=== PATIENT | female | born 1970 | race African-American/Black ===

== ENCOUNTER 2016-06-23 01:25 | Inpatient (IN) | payer OTHER ==
[2016-06-23] MEDS ORDERED: PHENERGAN IV ONE (02:54)
[2016-06-23] MEDS ORDERED: MORPHINE IV ONE (02:54)
[2016-06-23] MEDS ORDERED: SODIUM CHLORIDE 0.9% INJ ONE (02:54)
--- NOTE | 2016-06-23 03:09 | PROVIDER DOCUMENTATION ---
HPI-Abdominal Pain/GI Problem - General Source: patient - History of Present Illness-ABD Nature of Presenting Problems: Pt is a 45 y/o AA female who returns to the ER this evening for evaluation of continued nausea and vomiting. Pt was seen in the ER this morning for the same symtoms. She states she is unsure how long symptoms have been present but now had some dysuria. Pt had relatively normal labs and no acute findings on CT scan (Renal Stone Search) this morning. On arrival, pt is in minimal distress. <Wali Shaikh - Last Filed: 06/23/16 03:48> <Laura Calix - Last Filed: 06/23/16 06:25> - General Chief Complaint: Return/Recheck Stated Complaint: RECHECK Time Seen by Provider: 06/23/16 02:23 Allergies/Adverse Reactions: Patient Allergies Allergy/AdvReac Type Severity Reaction Status Date / Time fluoxetine HCl * AdvReac Unknown Verified 06/22/16 08:47 [From [email or web address]] Home Medications: Home Medication List Medication Instructions Recorded Confirmed Last Taken Type Propranolol HCl [Propranolol HCl 80 mg PO DAILY 01/19/16 06/23/16 06/22/16 History ER] Quetiapine [Seroquel] 50 mg PO DIRECTED 01/19/16 06/23/16 06/22/16 History Ondansetron Odt [Zofran 4 mg Odt] 4 mg PO Q8H PRN PRN #10 tablet 06/22/1606/23/16 00:00 Rx Tramadol [Ultram] 50 mg PO Q8HR PRN #10 tablet 06/22/16 06/23/16 06/23/16 00:00 Rx Review of Systems - Adult - REVIEW OF SYSTEMS - ADULT Constitutional: reports: no symptoms reported. denies: chills, fatique Eyes: reports: no symptoms reported. denies: blurred vision, double vision Ears, Nose, Mouth & Throat: reports: no symptoms reported. denies: ear pain, nose pain Cardiovascular: reports: no symptoms reported. denies: chest pain, irregular heart rate Respiratory: reports: no symptoms reported. denies: cough, shortness of breath Gastrointestinal: reports: abdominal pain, nausea, vomiting Genitourinary: reports: no symptoms reported. denies: dysuria, hematuria Musculoskeletal: reports: no symptoms reported. denies: bone pain, joint pain, joint swelling Integumentary: reports: no symptoms reported. denies: itching, rash Neurological: reports: no symptoms reported. denies: numbness, paresthesia Psychiatric: reports: no symptoms reported. denies: anxiety, emotional problems Endocrine: reports: no symptoms reported. denies: cold intolerance, heat intolerance Hematologic/Lymphatic: reports: no symptoms reported. denies: blood clots, low blood count Allergic/Immunologic: reports: no symptoms reported. denies: allergic reactions , food allergy All Other Systems: Reviewed and Negative <Wali Shaikh - Last Filed: 06/23/16 03:48> Past History - Adult - PAST MEDICAL HISTORY-ADULT Review of Records: reports: Old Records Reviewed, Nursing Assessment Review, Medications Reviewed, Social history reviewed & non-contributory. Major Childhood Illnesses: reports: denies history Cardiovascular: reports: HTN Respiratory: reports: denies history Gastrointestinal: reports: GERD Obstetrical/Gynecological: reports: denies history Genitourinary: reports: denies history Musculoskeletal: reports: denies history Neurological: reports: headaches/migraines Psychiatric: reports: depression, schizophrenia Endocrine/Immune: reports: Diabetes Other Conditions: reports: denies history - PRIOR SURGERIES/PROCEDURES Surgical/Procedure History: reports: cholecystectomy, hysterectomy, - IMMUNIZATION STATUS Childhood Immunizations: See Nurse Assessment Flu Vaccine: See Nurse Assessment - FAMILY HISTORY Family History: reviewed, not pertinent - SOCIAL HISTORY Smoking: denies Substance Use: none/never Alcohol Use Frequency: never Living Situation: family <Wali Shaikh - Last Filed: 06/23/16 03:48> Physical Exam-General - PHYSICAL EXAM-ADULT Initial Vital Signs Reviewed: Yes - CONSTITUTIONAL General Appearance: appears well, alert, no apparent distress - EYES Eyes: PERRL/EOMI, pink conjunctivae, fundi clear, no AV nicking - HEAD, EARS, NOSE, MOUTH & THROAT HENMT: normocephalic/atraumatic, moist mucous membranes, normal ENT inspection - NECK Neck: non-tender - RESPIRATORY Respiratory: chest non-tender, lungs clear, normal breath sounds - CARDIOVASCULAR Cardiovascular: normal peripheral pulses, regular rate, rhythm, no edema - GASTROINTESTINAL (ABDOMEN) Abdominal Exam: normal bowel sounds, soft, tenderness (generalized) - LYMPHATIC Lymphatic: no adenopathy - MUSCULOSKELETAL Back Exam: normal inspection, no CVA tenderness, no vertebral tenderness Extremity: normal range of motion, non-tender, normal gait - SKIN Integumentary: normal color, normal turgor, warm/dry - NEUROLOGIC Neurologic: grossly normal, no motor/sensory deficits - PSYCHIATRIC Psych/Mental Status: normal mood/affect, normal thought content, normal thought process, oriented x 3 <Wali Shaikh - Last Filed: 06/23/16 03:48> Progress - CHANGE OF SHIFT REPORT (ED Provider) Report Given and Care Transferred to:: Dr. Salguero (ER MD) Time of Transfer: 03:49 Items Pending: Labs <Wali Shaikh - Last Filed: 06/23/16 03:48> - PLAN OF CARE/RESULTS Progress/Plan/Lab Results: Laboratory Results - last 24 hr 06/23/16 06/23/16 06/23/16 04:00 04:00 04:30 WBC 17.98 H RBC 5.14 Hgb 13.6 Hct 41.5 MCV 80.7 L MCH 26.5 L MCHC 32.8 L RDW Std Deviation 14.9 H Plt Count 327 D MPV 12.6 H Immature Gran % (Auto) 0.3 Neut % (Auto) 81.6 H Lymph % (Auto) 12.3 L [place] % (Auto) 5.6 Eos % (Auto) 0.1 Baso % (Auto) 0.1 Immature Gran # (Auto) 0.05 H Neut # (Auto) 14.68 H Lymph # (Auto) 2.22 [place] # (Auto) 1.00 H Eos # (Auto) 0.01 Baso # (Auto) 0.02 Sodium 140 Potassium 3.3 L Chloride 96 L Carbon Dioxide 26 Anion Gap 18 BUN 16 Creatinine 0.9 Estimated GFR/1.73 m2 > 60 BUN/Creatinine Ratio 18 Glucose 115 H Calculated Osmolality 282 Calcium 10.5 H Total Bilirubin 0.45 AST 34 H ALT 30 Alkaline Phosphatase 133 H Total Protein 8.9 H Albumin 4.7 Globulin 4.2 Albumin/Globulin Ratio 1.1 Urine Source CLEAN CATCH Urine Color YELLOW Urine Turbidity CLEAR Urine pH 6.0 Ur Specific [place] 1.027 Urine Protein 300 A Ur Glucose (Stick) NEGATIVE Ur Ketones (Stick) 80 A Urine Blood SMALL A Urine Nitrite NEGATIVE Urine Bilirubin NEGATIVE Urobilinogen Dipstick 2 A Urine Leukocytes NEGATIVE Urine WBC (Auto) 10-20 A Urine RBC (Auto) 10-20 A U Epithel Cells (Auto) <10 Urine Bacteria (Auto) NEGATIVE Urine Crystals NONE SEEN Small Round Cells NONE SEEN Urine Casts NONE SEEN Urine Yeast-like Cells NONE SEEN Orders Category Date Time Status CBC WITH ELECTRONIC DIFF [HEME] Stat Lab 06/23/16 04:00 Completed CMP [COMPREHENSIVE METABOLIC PANEL] [CHEM] Stat Lab 06/23/16 04:00 Completed UA Reflex [URINALYSIS W/POSS RFLX CULT] [URINALYSIS] Lab 06/23/16 04:30 Completed Stat URINE CULTURE [RM] Routine Lab 06/23/16 04:49 Received URINE MANUAL MICROSCOPIC [URINALYSIS] Stat Lab 06/23/16 04:30 Completed Acetaminophen [Tylenol] Med 06/23/16 04:12 Discontinued 650 mg PO NOW ONE Morphine Med 06/23/16 02:54 Discontinued 4 mg IV NOW ONE Ondansetron [Zofran] Med 06/23/16 04:12 Discontinued 4 mg IV NOW ONE Promethazine [Phenergan] Med 06/23/16 02:54 Discontinued 12.5 mg IV NOW ONE Sodium Chloride 0.9% Med 06/23/16 02:54 Discontinued 10 ml INJ NOW ONE Vital Signs Temp Pulse Resp BP Pulse Ox 06/23/16 01:38 98.4 F 94 H 18 142/118 98 fluoxetine HCl * [From [facility] [employer]] Adverse Reaction (Verified 06/22/16 08:47) Unknown Propranolol HCl [Propranolol HCl ER] 80 mg PO DAILY 01/19/16 Quetiapine [Seroquel] 50 mg PO DIRECTED 01/19/16 Ondansetron Odt [Zofran 4 mg Odt] 4 mg PO Q8H PRN PRN #10 tablet 06/22/16 Tramadol [Ultram] 50 mg PO Q8HR PRN #10 tablet 06/22/16 Laboratory 06/23/16 06/23/16 06/23/16 04:30 04:00 04:00 WBC 17.98 H RBC 5.14 Hgb 13.6 Hct 41.5 MCV 80.7 L MCH 26.5 L MCHC 32.8 L RDW Std Deviation 14.9 H Plt Count 327 D MPV 12.6 H Immature Gran % (Auto) 0.3 Neut % (Auto) 81.6 H Lymph % (Auto) 12.3 L [place] % (Auto) 5.6 Eos % (Auto) 0.1 Baso % (Auto) 0.1 Immature Gran # (Auto) 0.05 H Neut # (Auto) 14.68 H Lymph # (Auto) 2.22 [place] # (Auto) 1.00 H Eos # (Auto) 0.01 Baso # (Auto) 0.02 Sodium 140 Potassium 3.3 L Chloride 96 L Carbon Dioxide 26 Anion Gap 18 BUN 16 Creatinine 0.9 Estimated GFR/1.73 m2 > 60 BUN/Creatinine Ratio 18 Glucose 115 H Calculated Osmolality 282 Calcium 10.5 H Total Bilirubin 0.45 AST 34 H ALT 30 Alkaline Phosphatase 133 H Total Protein 8.9 H Albumin 4.7 Globulin 4.2 Albumin/Globulin Ratio 1.1 Urine Source CLEAN CATCH Urine Color YELLOW Urine Turbidity CLEAR Urine pH 6.0 Ur Specific [place] 1.027 Urine Protein 300 A Ur Glucose (Stick) NEGATIVE Ur Ketones (Stick) 80 A Urine Blood SMALL A Urine Nitrite NEGATIVE Urine Bilirubin NEGATIVE Urobilinogen Dipstick 2 A Urine Leukocytes NEGATIVE Urine WBC (Auto) 10-20 A Urine RBC (Auto) 10-20 A U Epithel Cells (Auto) <10 Urine Bacteria (Auto) NEGATIVE Urine Crystals NONE SEEN Small Round Cells NONE SEEN Urine Casts NONE SEEN Urine Yeast-like Cells NONE SEEN - CONSULTS/PCP/HOSPITALIST Notification Time Discussed: 06:25 Reason/Comments: Admit to Dr. Nova Consult Disposition: Admit <Laura Calix - Last Filed: 06/23/16 06:25> Departure - Departure Certified Medical Emergency: Emergent <Wali Shaikh - Last Filed: 06/23/16 03:48> - Departure Time of Disposition Order: 06:24 Certified Medical Emergency: Emergent <Laura Calix - Last Filed: 06/23/16 06:25> - Departure DIAGNOSIS: Abdominal pain Qualifiers: Abdominal location: epigastric Qualified Code(s): R10.13 - Epigastric pain Leukocytosis Qualifiers: Leukocytosis type: unspecified Qualified Code(s): D72.829 - Elevated white blood cell count, unspecified Disposition: ADMITTED INPATIENT 09 Condition: Stable Attestation - Physician/ KELBY Attestation Patient care was provided by Advanced Practice Provider:: Yes Advanced Practice Provider:: Wali Shaikh Advanced Practice Provider documentation review:: The Mid-level provider documentation, treatment plan and medical decision making was reviewed by the physician who agrees with all treatment and medical decision making by the MLP. The physician spent face to face time with patient:: Yes <Wali Shaikh - Last Filed: 06/23/16 03:48> Physician Attestation
[2016-06-23] MEDS ORDERED: ZOFRAN IV ONE (04:12)
[2016-06-23] MEDS ORDERED: TYLENOL PO ONE (04:12)
[2016-06-23 04:15] LABS: MANUAL DIFF NEEDED? NO
[2016-06-23 04:18] LABS: BASO% 0.1 % (0.0-0.8); EOS# 0.01 X1000 (0.0-0.7); EOS% 0.1 % (0.0-10.0); HEMATOCRIT 41.5 % (37.0-47.0); HEMOGLOBIN 13.6 g/dL (12.0-16.0); IMM GRAN# 0.05 X1000 (0.0-0.04); IMM GRAN% 0.3 % (0.0-0.5); LYMPH# 2.22 X1000 (1.2-3.4); LYMPH% 12.3 % (20.5-51.1); MCH 26.5 PG (27-31); MCHC 32.8 g/dL (33-37); MCV 80.7 FL (81-99); MONO% 5.6 % (1.7-9.3); MPV 12.6 FL (7.4-10.4); NEUT% 81.6 % (42.2-75.2); PLT 327 X1000 (130-400); RBC 5.14 XMIL (4.2-5.4)
[2016-06-23 04:35] LABS: URINE SOURCE CLEAN CATCH
[2016-06-23 04:38] LABS: AGAP 18; ALBUMIN 4.7 g/dL (3.5-5.0); ALKALINE PHOSPHATASE 133 U/L (32-104); BUN 16 mg/dL (8-22); CALCIUM 10.5 mg/dL (8.8-10.2); CHLORIDE 96 mmol/L (98-107); COSMO 282; GOT 34 U/L (10-30); GPT 30 U/L (10-36); POTASSIUM 3.3 mmol/L (3.5-5.1); SODIUM 140 mmol/L (136-145); TCO2 26 mmol/L (25-35); TOTAL BILIRUBIN 0.45 mg/dL (0.20-1.00); TOTAL PROTEIN 8.9 g/dL (6.3-8.3)
[2016-06-23 04:38] LABS: BILIRUBIN URINE NEGATIVE (NEGATIVE); BLOOD URINE SMALL (NEGATIVE); COLOR YELLOW; GLUCOSE URINE NEGATIVE (NEGATIVE); LEUKOCYTES URINE NEGATIVE (NEGATIVE); NITRITE URINE NEGATIVE (NEGATIVE); PROTEIN URINE 300 mg/dL (NEGATIVE); SP GRAVITY URINE 1.027; TURBIDITY URINE CLEAR (CLEAR); URINE MICRO REVIEW NEEDED? YES; UROBILINOGEN URINE 2 mg/dL (NORMAL)
[2016-06-23 04:47] LABS: UR EPITHELIAL CELLS <10 /HPF (<10); URINE BACTERIA NEGATIVE /HPF; URINE CULTURE NEEDED? YES
[2016-06-23 05:06] LABS: URINE CASTS NONE SEEN; URINE CRYSTALS NONE SEEN; URINE SMALL ROUND CELLS NONE SEEN
[2016-06-23] MEDS ORDERED: NICODERM PATCH TD PRN (08:36)
[2016-06-23] MEDS ORDERED: APRESOLINE IV PRN (08:42)
[2016-06-23] MEDS ORDERED: PROTONIX IV SCH (09:00)
[2016-06-23 09:04] LABS: INR 1.01; PROTIME 10.7 Seconds (9.2-11.7)
[2016-06-23 09:08] LABS: AMYLASE 106 U/L (20-200); LIPASE 29 U/L (13-60)
[2016-06-23 09:11] LABS: HEMOGLOBIN A1C 5.5 % (4.8-6.0)
[2016-06-23] MEDS: NS 1,000 ML IV SCH ×3 (09:12→20:31)
[2016-06-23] MEDS: POTASSIUM CHLORIDE 20 MEQ/SWI 100 ML IV SCH ×2 (09:12→11:42)
[2016-06-23] MEDS: ZOFRAN IV PRN ×3 (09:25→20:30)
[2016-06-23] MEDS: SODIUM CHLORIDE 0.9% INJ SCH ×2 (09:25→20:30)
[2016-06-23 09:53] LABS: UR AMPHETAMINES QUAL NONE DETECTED (NONE DETECT); UR BARBITUATES QUAL NONE DETECTED (NONE DETECT); UR BENZODIAZEPIN QUAL NONE DETECTED (NONE DETECT); UR CANNABINOIDS QUAL NONE DETECTED (NONE DETECT); UR COCAINE QUAL PRESUMPTIVE POSITIVE (NONE DETECT); UR METHADONE QUAL NONE DETECTED (NONE DETECT); UR OPIATES QUAL NONE DETECTED (NONE DETECT); UR OXYCODONE QUAL NONE DETECTED (NONE DETECT); UR PCP QUAL NONE DETECTED (NONE DETECT)
--- NOTE | 2016-06-23 10:13 | HISTORY AND PHYSICAL ---
PRIMARY CARE PHYSICIAN: None. CHIEF COMPLAINT: Abdominal pain. HISTORY OF PRESENT ILLNESS: Mrs. Mcclure is a 45-year-old female with a history of rheumatoid arthritis, schizoaffective disorder, hypertension, GERD and others who presents with fairly acute onset of abdominal pain, nausea and vomiting. Symptoms began around 3 days ago. She states she was having generalized abdominal pain with no apparent inciting factors, and this was not associated with eating. She describes the pain as generalized, constant and sharp. She has been having some dysuria, as well. She reports subjective fever and chills as well as diaphoresis. She denies any diarrhea and she has had no hematemesis. She actually came to the ER yesterday morning and was discharged with a diagnosis of generalized abdominal pain. At that time, she had a CT renal stone search which did not show anything acute. She was given Zofran and discharged home. However, her abdominal pain continued, and she came back to the ER yesterday evening. Laboratory data was significant for a leukocytosis, mildly elevated LFTs, and hypokalemia. She states that she recently moved from [place] around 6 months ago and has had a reconstructive surgeon there, and has had upper endoscopies before but is unable to give an exact diagnosis with the exception of GERD. Her vital signs are stable. We are now going to admit her for further treatment and evaluation. PAST MEDICAL HISTORY: 1. Rheumatoid arthritis. 2. Schizoaffective disorder. 3. Hypertension. 4. Type 2 diabetes. 5. GERD. 6. Hyperlipidemia. 7. History of DVTs in the past. 8. Migraines. 9. Cocaine dependence. 10.Nicotine dependence. SURGICAL HISTORY: Hysterectomy, , cholecystectomy, kidney stone removal. SOCIAL HISTORY: The patient states she smokes a pack a day. She drinks occasional beer. She says that she smokes cocaine/crack 4 times a month. Last use was last Sunday. She is single. She has 2 children, is on disability for her mental health disorder. FAMILY HISTORY: Mother is alive with no medical problems. Father is alive with a history of cirrhosis of the liver secondary to alcoholism. He is a recovering alcoholic. REVIEW OF SYSTEMS: A 14-point review of systems was obtained and found to be negative with the exception of the HPI. HOME MEDICATIONS: 1. Propranolol 80 mg daily. 2. Seroquel 50 mg as directed. 3. Zofran 4 mg as needed. 4. Tramadol 50 mg q.8 h. as needed for pain. ALLERGIES: Fluoxetine. PHYSICAL EXAMINATION: VITAL SIGNS: Blood pressure is 160/99, heart rate 74, respiratory rate is 20, O2 saturation is 100% on room air, temperature is 97.9. GENERAL: This is a morbidly obese female lying in hospital bed in no acute distress. NEUROLOGIC: The patient is awake, alert, and oriented. She follows commands without focal deficits. HEENT: Head is atraumatic and normocephalic. Her pupils are equal, round and reactive to light. Oral mucosa is moist. NECK: Trachea is midline, no JVD, no carotid bruits. CHEST: Clear to auscultation bilaterally. CV: Regular rate and rhythm. S1, S2 is noted. No murmurs, gallops, clicks, or rubs. GI: Very mild diffuse tenderness to palpation. Otherwise, belly is soft, nondistended, nontender. Bowel sounds are positive. There is no CVA tenderness. EXTREMITIES: Without edema, clubbing, or cyanosis. Pulses are palpable bilaterally. DIAGNOSTIC DATA: CT stone search done yesterday shows no acute findings. Sodium 140, potassium 3.3, chloride 96, CO2 of 26, anion gap 18, BUN 16, creatinine 0.9, glucose 115, calcium 10.5. Bilirubin 0.45, AST 34, ALT 30, alkaline phosphatase 133. Total protein 8.9, albumin 4.7. UA shows 300 protein, 80 ketones, small blood, 10-20 WBCs, but no bacteria. WBC 17.98, hemoglobin 13.6, hematocrit 41.5, platelet count 327. ASSESSMENT AND PLAN: 1. Abdominal pain: Symptoms are nonspecific and differential diagnoses are broad at this time. We are going to check a lipase and an amylase, add IV fluids and antiemetics, check a hepatitis panel, a hemoglobin A1c, magnesium, and PT with INR as well as a urine drug screen. Severe gastroesophageal reflux, viral gastroenteritis or diabetic gastroparesis are high on the differentials. 2. Leukocytosis: Likely reactive to vomiting. There does not appear to be any nidus of infection at this time. However, we are going to go ahead and check a chest x-ray to make sure. We will continue to monitor her vital signs. She is afebrile, and heart rate is within normal limits. 3. Elevated liver function tests: Again, likely reactive but we are going to go ahead and check a hepatitis panel and avoid any hepatotoxic agents. 4. Hypokalemia. Will replace with IV potassium, check a magnesium, and follow electrolytes daily. 5. Hypertension: Oral medications on hold. Will add p.r.n. IV for now. 6. Type 2 diabetes: Will check a hemoglobin A1c, patterned sugars, and sliding scale insulin. 7. Schizoaffective disorder: This is stable at this time. Patient denies suicidal or homicidal ideations. She denies any auditory or visual hallucinations. Will continue her medicines once her abdominal pain has resolved. 8. Cocaine dependence. We are going to check a drug screen. We have highly encouraged the patient to seek help for narcotics dependence, she verbalizes understanding. Will continue daily education. 9. Nicotine dependence. The patient has been advised to quit smoking. Will add a nicotine patch and continue daily cessation education. 10.GI prophylaxis with Protonix. 11.DVT prophylaxis with Lovenox. Further recommendations to follow. Dictated by PAWAN Sainz for Krishna Patel MD
[2016-06-23] MEDS: HUMALOG SUBQ SCH ×2 (11:42→17:19)
[2016-06-23] MEDS ORDERED: PNEUMOVAX 23 IM ONE (12:45)
[2016-06-23] MEDS: MORPHINE IV PRN (17:33)
[2016-06-23] MEDS: SEROQUEL PO SCH (20:30)
[2016-06-23] MEDS: D50W SYRINGE ONE (20:30)
[2016-06-23] MEDS: PROTONIX IV SCH (20:30)
[2016-06-23] MEDS: PERICOLACE PO SCH (20:35)
[2016-06-24] MEDS: MORPHINE IV PRN ×2 (00:09→18:31)
[2016-06-24] MEDS: D50W SYRINGE ONE (00:14)
[2016-06-24] MEDS: HUMALOG SUBQ SCH ×5 (00:26→20:59)
[2016-06-24] MEDS: NS 1,000 ML IV SCH ×3 (06:34→17:17)
[2016-06-24 06:45] LABS: HEMATOCRIT 37.1 % (37.0-47.0); HEMOGLOBIN 11.8 g/dL (12.0-16.0); MCH 26.9 PG (27-31); MCHC 31.8 g/dL (33-37); MCV 84.7 FL (81-99); MPV 12.9 FL (7.4-10.4); RBC 4.38 XMIL (4.2-5.4)
[2016-06-24 06:54] LABS: AGAP 14; ALBUMIN 3.7 g/dL (3.5-5.0); ALKALINE PHOSPHATASE 100 U/L (32-104); BUN 21 mg/dL (8-22); CALCIUM 9.5 mg/dL (8.8-10.2); CHLORIDE 104 mmol/L (98-107); COSMO 285; GOT 57 U/L (10-30); GPT 63 U/L (10-36); POTASSIUM 3.3 mmol/L (3.5-5.1); SODIUM 142 mmol/L (136-145); TCO2 24 mmol/L (25-35); TOTAL BILIRUBIN 0.53 mg/dL (0.20-1.00); TOTAL PROTEIN 6.9 g/dL (6.3-8.3)
[2016-06-24] MEDS ORDERED: KLOR-CON PO ONE (08:25)
[2016-06-24] MEDS: PERICOLACE PO SCH ×2 (09:31→21:36)
[2016-06-24] MEDS: SODIUM CHLORIDE 0.9% INJ SCH ×2 (09:33→21:37)
[2016-06-24] MEDS: LOVENOX SUBQ SCH (09:33)
[2016-06-24] MEDS: PROTONIX IV SCH ×2 (09:33→21:37)
[2016-06-24] MEDS: ZOFRAN IV PRN ×2 (09:39→18:31)
--- NOTE | 2016-06-24 12:14 | PROGRESS NOTE ---
DATE: 06/24/2016 SUBJECTIVE: This patient is still complaining of abdominal pain, mild nausea, but she is asking for food. So, I will put this patient on a clear liquid diet to see how she does. Also, she is complaining of mild lower extremity discomfort/pain/tingling. Gastroenterology Department has been consulted pending recommendations. OBJECTIVE: Vital Signs: Temperature 98.4 degrees, pulse 79, respiratory rate 16, blood pressure 119/75, oxygen saturation 96 on room air. HEENT: Head normocephalic. No trauma. PERRLA. Neck: Supple. No JVD. No masses. Central trachea. Cardiovascular: RRR. No murmurs. No gallops or rubs. Chest: Clear to auscultation. No wheezing. No rales. Abdomen: Soft. Mildly distended. Generalized tenderness to palpation diffusely. Positive bowel sounds. Extremities: No edema. No clubbing. No cyanosis. Neurological examination: Patient is alert and oriented x3. No focal neurological deficits. LABORATORY: WBC 7.8, hemoglobin 11.8, hematocrit 37.1, platelet 209. Sodium 142, potassium 3.3, chloride 104, bicarbonate 24. BUN 21, creatinine 0.9, glucose 80, calcium 9.5. ASSESSMENT AND PLAN: 1. Abdominal pain. Symptoms are not specific. I will ask for abdominal ultrasound, the transaminases are a little bit elevated, and the alkaline phosphatase upon admission was 133. This patient has been placed on laxative and physical therapy. She is still complaining of mild nausea today, but she is asking for food, so I will start clear liquid diet. 2. Leukocytosis, resolved. Yesterday she was admitted with 17.9 white blood cells and today is 7.8. We will continue to monitor. 3. Elevated liver function tests. I will ask for an abdominal ultrasound to rule out any problem, but also this could be reactive. Will will avoid hepatotoxic agents. 4. Hypokalemia. I will replace the potassium again. 5. Hypertension. Continue with oral and as-needed medications. 6. Type 2 diabetes. Hemoglobin A1c surprisingly is 5.5, and she is not taking any kind of medications at home. I am not quite sure if she has diabetes at this moment. I had a large conversation with the patient about this diagnosis, and I strongly recommended to increase her physical activity and follow a diet. For now, I am not going to add any kind of diabetes mellitus medications. 7. Schizoaffective disorder. This is stable at this time. She denies suicidal or homicidal ideation. 8. Cocaine dependence. She has been highly advised against narcotic dependence. She verbalized understanding. We will continue with daily cessation education. 9. Nicotine dependence. Again, I highly recommended this patient to quit smoking. We will continue with nicotine patch and daily cessation education. 10. Gastrointestinal prophylaxis with Protonix and deep vein thrombosis prophylaxis with Lovenox.
--- NOTE | 2016-06-24 20:41 | CONSULTATION ---
DATE OF CONSULTATION: 06/24/2016 GASTROENTEROLOGY CONSULTATION: ATTENDING PHYSICIAN: Dr. Betancourt. REASON FOR CONSULTATION: Abdominal pain and elevated liver enzymes and nausea. HISTORY OF PRESENT ILLNESS: Ms. Mcclure is 45-year-old female, who was admitted on 06/23/2009 with symptoms of epigastric pain, right upper quadrant radiation along with nausea, vomiting. The patient recently moved from [place] a few months ago. She has been taking BC powders almost every day. She also admits to taking cocaine. She is a chronic smoker. She has previous history of peptic ulcer disease. She denies any vomiting blood or passing blood in the stools. She was also noted to have elevated liver enzymes. She denies any history of IV drug abuse or previous hepatitis. She had an upper endoscopy done in [place] 6 months ago. According to the patient the results showed reflux disease. PAST MEDICAL HISTORY: Rheumatoid arthritis, obesity. She has affective disorder, hypertension, type 2 diabetes, GERD, hyperlipidemia, DVTs in the past, migraines, cocaine dependence, nicotine dependence, history of use of NSAIDs like BC powders, previous peptic ulcer disease. SURGICAL HISTORY: EGD 6 months ago in [place]. In 2016, hysterectomy, C- section, cholecystectomy, and kidney stone removal. SOCIAL HISTORY: She smokes 1 pack a day. She drinks occasional beer. She smokes cocaine 4 times a month, last use was last Sunday. She is single. She has 2 children. She is on disability for mental health disorder. FAMILY HISTORY: Father has history of liver cirrhosis secondary to alcoholism. The patient denies any fevers, rigors, chills, chest pain, shortness of breath, dyspnea at rest. Denies any genitourinary complaints. Denies history of vomiting blood or passing blood in the stools. MEDICATIONS AT HOME: Propranolol 80 mg daily, Seroquel 50 mg as directed, Zofran 4 mg as needed, tramadol 50 mg every 8 hours as needed. ALLERGIES: To fluoxetine. MEDICATIONS IN THE HOSPITAL: Include NicoDerm patch, Zofran, hydralazine, morphine, IV fluids at 125 per hour, Lovenox, Humalog, Seroquel, Protonix and Rosette-Colace 2 capsules p.o. b.i.d. DIET: She is currently on a clear liquid diet. PHYSICAL EXAMINATION: Vital Signs: Temperature 98.4 degrees, pulse of 79, respiratory rate 18, blood pressure 120/70, saturating 97% on room air. Body weight of 228 pounds 14.4 ounces, BMI of 43 kg/m2. General: Obese, lying in bed, in no acute distress. HEENT: No pallor. No icterus. Pupils equal, react to light. Neck: Supple. Chest: Decreased breath sounds. Cardiac: A regular rhythm. No murmurs. Abdomen: Mild discomfort in epigastrium and right upper quadrant. No rebound. No guarding. Bowel sounds heard. Extremities: No cyanosis, clubbing, edema. Neurologic: Alert, awake, oriented. LABS: Hemoglobin and hematocrit 11.8 and 37.1, white count of 7.8, platelet count of 209,000, MCV of 84.7, INR 1.01. PT of 10.7. Sodium 142, potassium 3.3, chloride 104, bicarbonate 24, anion gap of 14, BUN of 21, creatinine 0.9, glucose of 80, calcium 9.5, total bilirubin is 0.53, AST 57, ALT 63, alkaline phosphatase 100, total protein 6.9, albumin of 3.7, amylase of 106, lipase 29. TSH is 0.44. B12 865. Urinalysis showing positive protein, small amount of blood, positive ketones, 10-20 white cells, no RBCs. Toxicology: Urine toxicology was positive for cocaine. Microbiology: Urine culture is no growth. IMPRESSION AND PLAN: 1. Right upper quadrant abdominal pain. I suspect peptic ulcer disease. The patient is a chronic smoker and using BC powders and cocaine. Initially I will continue on PPIs for 3 months. We will schedule for EGD on Sunday. We also counseled patient to quit use of cocaine and smoking and avoid any NSAIDs like BC powders. We will start her on a clear liquid diet and advance as tolerated. 2. Elevated liver enzymes. We will check hepatitis panel, ultrasound. It could be fatty liver as she has metabolic syndrome (diabetes and obesity). 3. Gastrointestinal prophylaxis with Protonix as above. 4. Bowel regimen for prophylaxis with Rosette-Colace. Above plan of care was discussed with the patient and all questions answered. [facility]
[2016-06-24] MEDS: SEROQUEL PO SCH (21:36)
[2016-06-25] MEDS: MORPHINE IV PRN (02:15)
[2016-06-25] MEDS: NS 1,000 ML IV SCH ×2 (04:48→08:32)
--- NOTE | 2016-06-25 07:46 | Diag Imaging Result Document ---
PROCEDURE NAME: US ABDOMEN-COMPLETE - 06/24/2016 ABDOMINAL ULTRASOUND: FINDINGS: The pancreas is normal in appearance. The liver is somewhat hyperechoic. The aorta and inferior vena cava are within normal limits. The kidneys are without evidence of hydronephrosis or mass. There is antegrade flow in the portal vein. The common bile duct measures 5 mm. The gallbladder is surgically absent. The spleen is not enlarged. There are no abnormal fluid collections demonstrated. IMPRESSION: Hepatic steatosis.
[2016-06-25] MEDS: PROTONIX IV SCH (08:31)
[2016-06-25] MEDS: SODIUM CHLORIDE 0.9% INJ SCH (08:31)
[2016-06-25] MEDS: LOVENOX SUBQ SCH (08:31)
[2016-06-25] MEDS: PERICOLACE PO SCH (08:31)
[2016-06-25 13:25] VITALS: BP 145/94
[2016-06-25] MEDS: HUMALOG SUBQ SCH ×2 (13:56→13:58)
[2016-06-26] MEDS ORDERED: PROTONIX PO SCH (07:00)
[2016-06-26 10:59] LABS: HEPATITIS PROFILE ACUTE SEE COMMENTS (())
--- NOTE | 2016-06-26 17:27 | DISCHARGE SUMMARY ---
ADMISSION DATE: 06/23/2016 DISCHARGE DATE: 06/25/2016 DISCHARGE DIAGNOSES: 1. Abdominal pain, probably related with peptic ulcer disease. 2. Transaminitis. 3. Leukocytosis. 4. Hypertension. 5. Type 2 diabetes. 6. Schizoaffective disorder. 7. Cocaine dependence. 8. Nicotine dependence. 9. Possible alcohol abuse. CONSULT: Gastroenterology Department Dr. Almazan. HOSPITAL COURSE: A 45 years old female with a history of schizoaffective disorder, questionable rheumatoid arthritis, hypertension, GERD presented to the emergency department with a chief complaint of abdominal pain, nausea and vomiting that started 3 days before admission, she was admitted on 06/23/2016. Patient states that these symptoms were not associated with eating. She described the pain as a generalized constant and sharp associated with subjective fever and chills and diaphoresis. She was admitted to the medical floor and we started this patient on supportive medications for nausea, diabetes and abdominal pain. The patient was improving on a daily basis, she was evaluated by Gastroenterology Department who recommended to do an endoscopy as an outpatient, she will follow up with Dr. Almazan in 1 week after the discharge. Today she was not complaining about pain, nausea, vomiting or fever, she has been highly advised again against cigarette smoking and cocaine abuse. She will be discharged with a strict followup by gastroenterology department and she needs to set up appointment with a primary care physician, she states that she used to live in [place], [place] and she used to have a physician over there and she is trying to get 1 here. At the moment of discharge this patient was in stable medical condition tolerating p.o., ambulating without pain, without nausea or vomiting. PHYSICAL EXAM: Vital Signs: Temperature 98.4 degrees, pulse 81, respiratory rate 18, blood pressure 145/94, oxygen saturation 100 on room air. HEENT: Head normocephalic. No trauma. PERRLA. Neck: Supple. No JVD. No masses. Central trachea. Chest: Clear to auscultation. No wheezing. No rales. Abdomen: Soft, nontender, nondistended. No hepatosplenomegaly. Extremities: No edema. No clubbing. No cyanosis. Neurological: The patient is alert and oriented x3. No focal neurological deficits. LABORATORY: WBC 7, hemoglobin 11.8, hematocrit 37.1, platelets 209,000. DISCHARGE MEDICATION: Ondansetron 4 mg p.o. q.8 hours p.r.n. nausea, propranolol 80 mg p.o. daily, tramadol 50 mg p.o. q.8 hours p.r.n., Rosette-Colace 2 capsules p.o. twice a day, Seroquel 50 mg p.o. at bedtime and pantoprazole 40 mg p.o. daily for 3 months. FOLLOWUP: Follow up in [address] Almazan.
== END 2016-06-25 15:03 | disposition home or self-care (01) | DRG 384 ==
LOC: ED 01:25 → 4N 08:03
PROVIDERS: ATTEND Internal Medicine
DX: K27.9 Peptic ulcer, site unspecified, unspecified as acute or chronic, without hemorrhage or perforation (principal); F14.20 Cocaine dependence, uncomplicated; I10 Essential (primary) hypertension; Z68.41 Body mass index [BMI] 40.0-44.9, adult; M06.9 Rheumatoid arthritis, unspecified; E87.6 Hypokalemia; E11.9 Type 2 diabetes mellitus without complications; E78.5 Hyperlipidemia, unspecified; K21.9 Gastro-esophageal reflux disease without esophagitis; F25.9 Schizoaffective disorder, unspecified; F10.10 Alcohol abuse, uncomplicated; E66.01 Morbid (severe) obesity due to excess calories; F17.210 Nicotine dependence, cigarettes, uncomplicated; Z79.899 Other long term (current) drug therapy; Z86.718 Personal history of other venous thrombosis and embolism; Z87.11 Personal history of peptic ulcer disease
CPT/HCPCS: 36415; 74176; 76700; 80053; 80074; 81001; 81025; 82150; 82607; 82948; 83036; 83690; 83735; 84443; 85025; 85027; 85610; 87088; 96372; 96374; 96375; C9113; G0480; J1170; J1650; J2270; J2405; J2550; J3480; J7030; 80324; 80345; 80346; 80349; 80353; 80358; 80361; 80365; 83992; 97110-GP; 97116-GP; S0164